=== PATIENT | female | born 1995 | race Caucasian/White ===

== ENCOUNTER 2018-05-15 10:03 | Emergency (ER) | payer MEDICAID, OTHER ==
[~2018-05-15] VITALS: Ht 170.2 cm; Wt 62.0 kg
[2018-05-15 10:11] VITALS: BP 117/79
[2018-05-15] MEDS ORDERED: CLIN300C85 PO (11:02)
== END 2018-05-15 11:07 | disposition home or self-care (01) ==
LOC: ER 10:04
DX: K02.9 Dental caries, unspecified (principal); J45.909 Unspecified asthma, uncomplicated
CPT/HCPCS: 99283